=== PATIENT | female | born 1995 | race Caucasian/White ===

== ENCOUNTER 2021-09-11 09:51 | Outpatient (REF) | payer BC, SELFPAY ==
--- NOTE | 2021-09-11 09:54 | SKI_PTH ---
PATIENT: Marlen Braun LOC: [facility] U#:[id number] AGE/SX: 26/F ROOM: RE09/11/[address]: Rosalia Nur MD : 1995 BED: DIS: 09/11/2021 SPEC #: [id number] RECD: 09/11/21 12:33 STATUS: PAZ REQ #: [id number] GUILLERMO: 09/11/21 09:[address]: Rosalia Nur DEPT: Surgical Specimen RECD BY: Joy Cyr ENTERED: 09/11/21 12:33 SP TYPE: ELGIN CHENEY DR: Teri Beauchamp Tissues: 1 - SKIN BIOPSY(SHAVE/PUNCH) Procedures: SKIN LEVEL 4 Comments: [id number]
== END 2021-09-11 09:52 | disposition home or self-care (01) ==
LOC: LBN 09:51
PROVIDERS: PCP Nurse Practitioner Family; Visit Provider Surgery
DX: D22.5 Melanocytic nevi of trunk (principal)
CPT/HCPCS: 88305

== ENCOUNTER 2021-09-11 11:19 | Outpatient (REF) | payer BC, SELFPAY | END 2021-09-11 11:20 | disposition home or self-care (01) | LOC: LBN 11:19 | PROVIDERS: PCP Nurse Practitioner Family; Visit Provider Surgery ==

== ENCOUNTER 2022-01-16 18:12 | Outpatient (REF) | payer BC, SELFPAY ==
[2022-01-16 20:27] LABS: Abs Immature Grans 0.02 10^3/uL (0.0-0.06); Absolute Basophil Count 0.04 10^3/uL (0.0-0.2); Absolute Eosinophil Count 0.03 10^3/uL (0.0-0.7); Absolute Lymphocyte Count 2.87 10^3/uL (1.2-3.4); Absolute Monocyte Count 0.41 10^3/uL (0.1-0.8); Absolute Neutrophil Count 4.45 10^3/uL (1.2-6.7); Basophils % 0.5; Eosinophils % 0.4; HCT 38.1 % (36.0-46.0); HGB 12.9 g/dL (11.2-15.7); Immature Grans % 0.3; Lymphocytes % 36.7; MCH 30.1 pg (27.0-33.0); MCHC 33.9 % (32.0-36.0); MCV 89 fL (80-95); MPV 9.4 fL (8.0-11.0); Monocytes % 5.2; Neutrophils % 56.9; Platelet Count 227 10^3/uL (130-400); RBC 4.29 10^6/uL (3.93-5.22); RDW 12.3 % (11.7-14.6); RDW-SD 39.5 fL; WBC 7.82 10^3/uL (4.4-10.8)
== END 2022-01-16 18:13 | disposition home or self-care (01) ==
LOC: NCHCN 18:12
PROVIDERS: PCP Nurse Practitioner Family; Visit Provider Nurse Practitioner Family
DX: K92.1 Melena (principal)
CPT/HCPCS: 85025